=== PATIENT | female | born 1990 | race Caucasian/White ===

== ENCOUNTER 2021-05-07 12:55 | Emergency (ER) | payer SELFPAY ==
[~2021-05-07] VITALS: Ht 154.9 cm; Wt 52.3 kg
[2021-05-07 13:23] VITALS: BP 105/69; TEMP 98.7
[2021-05-07 13:55] LABS: COLLECTION METHOD CLEAN CATCH
[2021-05-07 14:07] LABS: MUCOUS Present /lpf; PH 5 (5-8); URINE APPEARANCE Hazy; URINE BACTERIA None Seen /hpf; URINE BILIRUBIN Negative (NEGATIVE); URINE BLOOD Negative (NEGATIVE); URINE COLOR Amber; URINE GLUCOSE Negative (NEGATIVE); URINE KETONE 1+ (NEGATIVE); URINE LEUKOCYTE ESTERASE 2+ (NEGATIVE); URINE NITRATE Positive (NEGATIVE); URINE PROTEIN(semi-quant) 1+ (NEGATIVE); URINE UROBILINOGEN >=4.0 mg/dL (NEGATIVE)
[2021-05-07 14:12] LABS: TRICYCLIC ANTIDEPRESS URINE NEGATIVE
[2021-05-07 14:40] LABS: BASO % 0.4 % (0.0-2.0); EOS % 0.3 % (0-4.0); HEMOGLOBIN 11.4 g/dl (12.5-16.0); LYMPH # 1.3 (1.2-3.4); LYMPH % 17.4 % (20.0-51.0); MEAN CELL VOLUME 97 fl (80.0-100.0); MEAN CORPUSCULAR HEMOGLOBIN 34 pg (27.0-31.0); MEAN CORPUSCULAR HGB CONC 35 g/dl (33.0-37.0); MEAN PLATELET VOLUME 9.3 fl (7.4-10.4); MONO # 0.3 (0.1-0.6); MONO % 3.8 % (1.7-9.3); PLATELET COUNT 237 K/mm3 (130-400); RED BLOOD COUNT 3.33 M/mm3 (4.10-5.30); REDCELL DISTRIBUTION WIDTH-CV 12.6 % (11.5-14.5)
[2021-05-07 14:41] LABS: HEMATOCRIT 32.2 % (37.0-47.0)
[2021-05-07 15:07] LABS: ALBUMIN 3.5 gm/dL (3.5-5.0); ALKALINE PHOSPHATASE 66 U/L (0-750); ANION GAP 9 mmol/L (7-16); AST,SGOT 12 U/L (5-34); BILIRUBIN,TOTAL 0.6 mg/dL (0.2-1.2); BLOOD UREA NITROGEN 8 mg/dL (7-19); CALCIUM 8.7 mg/dL (8.4-10.2); CARBON DIOXIDE 21 mmol/L (22-29); CHLORIDE 108 mmol/L (98-107); CREATININE, serum 0.79 mg/dL (0.57-1.11); GLUCOSE 87 mg/dL (70-99); POTASSIUM 3.2 mmol/L (3.5-4.5); SODIUM 138 mmol/L (136-145); TOTAL PROTEIN 6.5 gm/dL (6.2-8.1)
[2021-05-07 15:18] LABS: ALANINE AMINOTRANSFERASE < 6 U/L (0-55); ALCOHOL(ethanol),MEDICAL < 10 mg/dL (0-10)
[2021-05-07] MEDS ORDERED: CIPRO 500MG TA500 MG PO (15:23)
[2021-05-07 16:03] VITALS: PULSE 100
== END 2021-05-07 16:04 | disposition home or self-care (01) ==
LOC: COL.ER 12:55
PROVIDERS: Personal Emergency Response Attendant
DX: F41.9 Anxiety disorder, unspecified (principal); F32.9 Major depressive disorder, single episode, unspecified; N39.0 Urinary tract infection, site not specified; F11.23 Opioid dependence with withdrawal; F17.200 Nicotine dependence, unspecified, uncomplicated